=== PATIENT | male | born 1950 | race Hispanic/Latino ===

== ENCOUNTER 2017-10-16 16:37 | Inpatient (IN) | payer MEDICARE, OTHER ==
[2017-10-16 17:08] LABS: BASO # 0.1 K/uL (0.0-0.2); BASO % 0.7 % (0.0-2.0); EOS # 0.1 K/uL (0.0-0.7); EOS % 0.5 % (0.0-4.0); HEMOGLOBIN 17.6 g/dL (12.0-18.0); LYMPH # 1.2 K/uL (1.0-4.3); LYMPH % 10.9 % (20.0-40.0); MEAN CELL VOLUME 87.9 fL (80.0-94.0); MEAN CORPUSCULAR HEMOGLOBIN 29.8 pg (27.0-31.0); MEAN CORPUSCULAR HGB CONC 33.9 g/dL (33.0-37.0); MEAN PLATELET VOLUME 8.6 fL (7.2-11.7); MONO # 1.1 K/uL (0.0-0.8); MONO % 10.5 % (0.0-10.0); NEUT # 8.2 K/uL (1.8-7.0); NEUT % 77.4 % (50.0-75.0); NRBC % 0.3 % (0.0-2.0); RBC 5.9 Mil/uL (4.40-5.90); RED CELL DISTRIBUTION WIDTH 14.9 % (11.5-14.5); WHITE BLOOD COUNT 10.6 K/uL (4.8-10.8)
[2017-10-16 17:22] LABS: ALB/GLOB RATIO 1.2 (1.0-2.1); ALBUMIN 4.6 g/dL (3.5-5.0); ALT/SGPT 22 U/L (21-72); AST/SGOT 28 U/L (17-59); BLOOD UREA NITROGEN 26 mg/dL (9-20); CALCIUM 10.1 mg/dl (8.6-10.4); GFR AFRICAN-AMERICAN > 60; GFR NON-AFRICAN AMERICAN > 60
--- NOTE | 2017-10-16 17:31 | RAD ---
PROCEDURE: CHEST RADIOGRAPH, 1 VIEW HISTORY: SOB COMPARISON: Chest radiograph dated 07/05/2017. FINDINGS: LUNGS: Prominence of pulmonary vasculature may be secondary to AP technique and/or pulmonary vascular congestion. PLEURA: No pneumothorax or pleural fluid seen. CARDIOVASCULAR: Normal. OSSEOUS STRUCTURES: Unchanged. VISUALIZED UPPER ABDOMEN: Normal. OTHER FINDINGS: None. IMPRESSION: Prominence of the pulmonary vasculature may be secondary to AP technique and/or pulmonary vascular congestion. No focal consolidation or pleural effusion.
[2017-10-16 17:34] LABS: B-TYPE NATRIURETIC PEPTIDE 4500 pg/mL (0-900)
--- NOTE | 2017-10-16 17:36 | C.PDOC ---
History Of Present Illness 67 year old male with PMHx of AFib is brought to the ED by EMS for evaluation of SOB and palpitations. Patient is currently taking xeralto but has been off cardizen due to poor toleration. Patient was given lasix, cardizem 30 mg IV and BIPAP en route to the ED by EMS. Patient denies headache, CP, weakness, numbness. Time Seen by Provider: 10/16/17 16:46 Chief Complaint (Nursing): Respiratory Distress History Per: Patient, EMS History/Exam Limitations: no limitations Onset/Duration Of Symptoms: Hrs Current Symptoms Are (Timing): Still Present Exacerbating Factor(s): Exertion Current Respiratory Medications: See Home Med List Recent travel outside of the [place]: No Additional History Per: Patient Past Medical History Reviewed: Historical Data, Nursing Documentation, Vital Signs Vital Signs: Last Vital Signs Temp 99.1 F 10/16/17 18:28 Pulse 109 H 10/16/17 18:28 Resp 20 10/16/17 18:28 BP 153/90 H 10/16/17 18:46 Pulse Ox 96 10/16/17 18:28 - Medical History PMH: Cardia Arrhythmia (ATRIAL FIBRILLATION), COPD, HTN, Hypercholesterolemia, Sleep Apnea (CPAP EVERY NIGHT) Denies: Chronic Kidney Disease Surgical History: No Surg Hx Family History: States: Unknown Family Hx - Social History Hx Alcohol Use: No Hx Substance Use: No - Immunization History Hx Tetanus Toxoid Vaccination: Yes Hx Influenza Vaccination: Yes Hx Pneumococcal Vaccination: Yes Review Of Systems Constitutional: Negative for: Fever, Chills Cardiovascular: Positive for: Palpitations. Negative for: Chest Pain Respiratory: Positive for: Shortness of Breath Gastrointestinal: Negative for: Nausea, Vomiting, Abdominal Pain Skin: Negative for: Rash Neurological: Negative for: Weakness, Numbness, Headache Physical Exam - Physical Exam Appears: Non-toxic, In Acute Distress Skin: Normal Color, Warm, Dry Head: Atraumatic, Normacephalic Eye(s): bilateral: Normal Inspection Nose: No Discharge Oral Mucosa: Moist Neck: Normal ROM, Supple Chest: Symmetrical Cardiovascular: Rhythm Regular, No Murmur Respiratory: Rales (B/L), No Rhonchi, No Wheezing, Other (Respiratory distress ) Gastrointestinal/Abdominal: Soft, No Tenderness, No Guarding, No Rebound Extremity: Normal ROM, Pedal Edema (B/L 4+), Capillary Refill (<2 seconds), No Swelling Pulses: Left Dorsalis Pedis: Normal, Right Dorsalis Pedis: Normal Neurological/Psych: Oriented x3, Normal Speech Gait: Unable To Assess ED Course And Treatment - Laboratory Results Result Diagrams: 10/16/17 17:03 10/16/17 17:03 Lab Interpretation: Abnormal (bNP 4500, trop neg.) ECG: Interpreted By Vt ECG Rhythm: Atrial Fibrillation ECG Interpretation: Abnormal Rate From EC (BPM) O2 Sat by Pulse Oximetry: 97 (ON RA) Pulse Ox Interpretation: Normal - Radiology CXR: Interpreted by Me CXR Interpretation: Yes: Other (+CHF) Progress Note: cardizem PO, lasix IV, BiPap Reevaluation Time: 17:34 Reassessment Condition: Improved - Physician Consult Information Outcome Of Conversation: 1730: d/w Dr. Manuel- pt's Cardio- ok to Consult. 1730: d/w Dr. Jacek Ruiz- pt's PMD- ok to admit. Medical Decision Making Medical Decision Making: Plan: * EKG * LAbs * CXR * Cardizem 60 mg PO * Lasix 40 mg IVP rapid AF/CHF off Cardizem PO due to ? intolerance but tolerated well in ED- avoiding BB's in CHF exacerbation Already on Xaralto- no further anticoagulation required at this time. Disposition Doctor Will See Patient In The: Hospital Counseled Patient/Family Regarding: Studies Performed, Diagnosis - Disposition Disposition: HOSPITALIZED Disposition Time: 17:37 Condition: GOOD - Clinical Impression Clinical Impression: Congestive heart failure, Rapid atrial fibrillation - Scribe Statement The provider has reviewed the documentation as recorded by the Scribweston Cruz All medical record entries made by the Scribe were at my direction and personally dictated by me. I have reviewed the chart and agree that the record accurately reflects my personal performance of the history, physical exam, medical decision making, and the department course for this patient. I have also personally directed, reviewed, and agree with the discharge instructions and disposition.
[2017-10-16 17:43] LABS: BARBITURATES, UR NEGATIVE (NEGATIVE); BENZODIAZEPINES, UR NEGATIVE (NEGATIVE); OPIATES, UR NEGATIVE (NEGATIVE); PHENCYCLIDINE, UR NEGATIVE (NEGATIVE)
[2017-10-16 18:21] VITALS: BMI 39.4
--- NOTE | 2017-10-16 18:57 | CP.PCM.CON ---
History of Present Illness - History of Present Illness History of Present Illness: I was asked to see patient by Dr Ruiz. Patient is a 67 year old male with a history of HTN, hypercholesterolemia, atrial fibrillation who presents with dyspnea. Patient has chronic atrial fibrillation, and was previously offered atrial fibrillation ablation. He declined stating that he was asymptomatic. He was noted to developed dyspnea with palpitations. symptoms were progressive, and the patient presented to ER. He was found to be in CHF, with pulmonary vascular congestion and rapid atrial fibrillation. The patinet is currently in the ER on BiPAP. Review of Systems - Constitutional Constitutional: absent: As Per HPI, Anorexia, Chills, Daytime Sleepiness, Excessive Sweating, Fatigue, Fever, Frequent Falls, Headache, Increased Appetite , Lethargy, Malaise, Night Sweats, Snoring, Sleep Apnea, Weight Gain, Weight Loss, Weakness, Other - EENT Eyes: absent: As Per HPI, Blind Spots, Blurred Vision, Change in Vision, Decreased Night Vision, Diplopia, Discharge, Dry Eye, Exophthalmos, Floaters, Irritation, Itchy Eyes, Loss of Peripheral Vision, Pain, Photophobia, Requires Corrective Lenses, Sees Flashes, Spots in Vision, Tunnel Vision, Other Visual Disturbances, Loss of Vision, Other Ears: absent: As Per HPI, Decreased Hearing, Ear Discharge, Ear Pain, Tinnitus, Abnormal Hearing, Disequilibrium, Dizziness, Other Nose/Mouth/Throat: absent: As Per HPI, Epistaxis, Nasal Congestion, Nasal Discharge, Nasal Obstruction, Nasal Trauma, Nose Pain, Post Nasal Drip, Sinus Pain, Sinus Pressure, Bleeding Gums, Change in Voice, Dental Pain, Dry Mouth, Dysphagia, Halitosis, Hoarsness, Lip Swelling, Mouth Lesions, Mouth Pain, Odynophagia, Sore Throat, Throat Swelling, Tongue Swelling, Facial Pain, Neck Pain, Neck Mass, Other - Cardiovascular Cardiovascular: Dyspnea, Palpitations - Respiratory Respiratory: Dyspnea - Gastrointestinal Gastrointestinal: absent: As Per HPI, Abdominal Pain, Belching, Bloating, Change in Bowel Habits, Change in Stool Character, Coffee Ground Emesis, Constipation, Cramping, Diarrhea, Dyspepsia, Dysphagia, Early Satiety, Excessive Flatus, Fecal Incontinence, Heartburn, Hematemesis, Hematochezia, Loose Stools, Melena, Nausea, Odynophagia, Temesmus, Vomiting, Other - Genitourinary Genitourinary: absent: As Per HPI, Change in Urinary Stream, Difficulty Urinating, Dysuria, Flank Pain, Hematuria, Pyuria, Nocturia, Urinary Incontinence, Urinary Frequency, Urinary Hesitance, Urinary Urgency, Voiding Freq/Small Amts, Freq UTI, Hx Renal/Bladder Calculi, Hx /Renal Surgery, Bladder Distension, Other - Musculoskeletal Musculoskeletal: absent: As Per HPI, Abnormal Gait, Arthralgias, Atrophy, Back Pain, Deformity, Joint Swelling, Limited Range of Motion, Loss of Height, Muscle Cramps, Muscle Weakness, Myalgias, Neck Pain, Numbness, Radiating Pain into Limb, Stiffness, Tingling, Other - Integumentary Integumentary: absent: As Per HPI, Acne, Alopecia, Bleeding Lesions, Change in Hair, Change in Nails, Change in Pigmentation, Changing Lesions, Dry Skin, Erythema, Furuncle, Hirsutism, Lesions, New Lesions, Non-Healing Lesions, Photosensitivity, Pruritus, Rash, Skin Pain, Skin Ulcer, Sores, Striae, Swelling , Unusual Bruising, Wounds, Jaundice, Other - Neurological Neurological: absent: As Per HPI, Abnormal Gait, Abnormal Hearing, Abnormal Movements, Abnormal Speech, Behavioral Changes, Burning Sensations, Confusion, Convulsions, Disequilibrium, Dizziness, Numbness, Focal Weakness, Frequent Falls , Headaches, Lack of Coordination, Loss of Vision, Memory Loss, Paresthesias, Radicular Pain, Restless Legs, Sensory Deficit, Syncope, Tingling, Tremor, Vertigo, Weakness, Other Visual Disturbances, Other - Psychiatric Psychiatric: absent: As Per HPI, Abnormal Sleep Pattern, Anhedonia, Anxiety, Auditory Hallucinations, Behavioral Changes, Change in Appetite, Change in Libido, Confusion, Depression, Difficulty Concentrating, Hallucinations, Homicidal Ideation, Hopelessness, Irritability, Memory Loss, Mood Swings, Panic Attacks, Paranoia, Suicidal Ideation, Visual Hallucinations, Tactile Hallucinations, Other - Endocrine Endocrine: absent: As Per HPI, Change in Body Appearance, Change in Libido, Cold Intolorance, Deepening of Voice, Excessive Sweating, Fatigue, Flushing, Heat Intolorance, Increase in Ring/Shoe/Hat Size, Palpitations, Polydipsia, Polyphagia, Polyuria, Other - Hematologic/Lymphatic Hematologic: absent: As Per HPI, Easy Bleeding, Easy Bruising, Lymphadenopathy, Other Past Patient History - Past Social History Smoking Status: Never Smoked - CARDIAC Hx Cardia Arrhythmia: Yes (ATRIAL FIBRILLATION) Hx Hypercholesterolemia: Yes Hx Hypertension: Yes - PULMONARY Hx Chronic Obstructive Pulmonary Disease (COPD): Yes Hx Sleep Apnea: Yes (CPAP EVERY NIGHT) - NEUROLOGICAL Hx Neurological Disorder: No - HEENT Hx HEENT Problems: No - RENAL Hx Chronic Kidney Disease: No - ENDOCRINE/METABOLIC Hx Endocrine Disorders: Yes Hx Diabetes Mellitus Type 2: Yes (PRE DIABETIC) - HEMATOLOGICAL/ONCOLOGICAL Hx Blood Disorders: No - INTEGUMENTARY Hx Dermatological Problems: No - MUSCULOSKELETAL/RHEUMATOLOGICAL Hx Musculoskeletal Disorders: Yes Hx Osteoarthritis: Yes - GASTROINTESTINAL Hx Gastrointestinal Disorders: No Other/Comment: DENIES POLYPS IN PAST , STATES FAMILY HISTORY POSITIVE - GENITOURINARY/GYNECOLOGICAL Hx Genitourinary Disorders: Yes Other/Comment: LEFT URETER BLOCKAGE YEARS AGO. PSA IS NEGATIVE BUT PHYSICAL EXAM SHOWS ENLARGEMENT - PSYCHIATRIC Hx Substance Use: No - SURGICAL HISTORY Hx Surgeries: Yes Other/Comment: REMOVAL OF BLOCKED LEFT URETER SITE - ANESTHESIA Hx Anesthesia: Yes Hx Anesthesia Reactions: No Hx Malignant Hyperthermia: No Meds Allergies/Adverse Reactions: Allergies Allergy/AdvReac Type Severity Reaction Status Date / Time No Known Allergies Allergy Verified 10/16/17 16:53 Physical Exam - Constitutional Appears: Non-toxic - Head Exam Head Exam: NORMAL INSPECTION - Eye Exam Eye Exam: Normal appearance - ENT Exam ENT Exam: Mucous Membranes Moist - Neck Exam Neck exam: Positive for: Full Rom - Respiratory Exam Respiratory Exam: Decreased Breath Sounds - Cardiovascular Exam Cardiovascular Exam: Tachycardia, Irregular Rhythm - GI/Abdominal Exam GI & Abdominal Exam: Normal Bowel Sounds - Rectal Exam Rectal Exam: Deferred - Extremities Exam Extremities exam: Negative for: pedal edema - Back Exam Back exam: NORMAL INSPECTION - Neurological Exam Neurological exam: Alert, Oriented x3 - Psychiatric Exam Psychiatric exam: Normal Affect - Skin Skin Exam: Normal Color Results - Vital Signs Recent Vital Signs: Last Vital Signs Temp 99.1 F 10/16/17 18:28 Pulse 109 H 10/16/17 18:28 Resp 20 10/16/17 18:28 BP 153/90 H 10/16/17 18:46 Pulse Ox 96 10/16/17 18:28 - Labs Result Diagrams: 10/16/17 17:03 10/16/17 17:03 Labs: Laboratory Results - last 24 hr 10/16/17 10/16/1718 17:03 17:03 17:19 WBC 10.6 RBC 5.90 Hgb 17.6 Hct 51.8 H MCV 87.9 MCH 29.8 MCHC 33.9 RDW 14.9 H Plt Count 209 MPV 8.6 Neut % (Auto) 77.4 H Lymph % (Auto) 10.9 L [place] % (Auto) 10.5 H Eos % (Auto) 0.5 Baso % (Auto) 0.7 Neut # (Auto) 8.2 H Lymph # (Auto) 1.2 [place] # (Auto) 1.1 H Eos # (Auto) 0.1 Baso # (Auto) 0.1 Sodium 143 Potassium 3.6 Chloride 97 L Carbon Dioxide 28 Anion Gap 22 H BUN 26 H Creatinine 1.2 Est GFR ( Amer) > 60 Est GFR (Non-Af Amer) > 60 Random Glucose 154 H Calcium 10.1 Total Bilirubin 1.6 H AST 28 ALT 22 Alkaline Phosphatase 65 Troponin I 0.0570 NT-Pro-B Natriuret Pep 4500 H Total Protein 8.5 H Albumin 4.6 Globulin 3.9 Albumin/Globulin Ratio 1.2 Urine Opiates Screen Negative Urine Methadone Screen Negative Ur Barbiturates Screen Negative Ur Phencyclidine Scrn Negative Ur Amphetamines Screen Negative U Benzodiazepines Scrn Negative U Oth Cocaine Metabols Negative U Cannabinoids Screen Negative - EKG Data EKG Interpreted by: Myself Assessment & Plan (1) Rapid atrial fibrillation Assessment and Plan: patient has current rapid atrial fibrillation. The patient will require rate control and improvement in volume status. I discussed management with the patient at length. He will benefit from CICI possible cardioversion. I will continue Xarelto. Check echocardiogram (2D). with improvement in respiratory status, will schedule for CICI. Status: Acute
[2017-10-16] MEDS ORDERED: Digoxin 500 mcg/2ml (0.5 mg/2ml) Inj IVP ONE (20:04)
[2017-10-16 20:17] VITALS: PULSE 145
[2017-10-16] MEDS ORDERED: Potassium Chloride 20 mEq ER Tab PO STA (22:27)
[2017-10-17 07:45] LABS: BLOOD UREA NITROGEN 34 mg/dL (9-20); CALCIUM 9.1 mg/dl (8.6-10.4); GFR AFRICAN-AMERICAN > 60; GFR NON-AFRICAN AMERICAN 55
[2017-10-17] MEDS: (Novolog) Insulin Aspart, Recombinant 100 u/ml 10 ml vial SC SCH ×4 (08:05→22:45)
[2017-10-17] MEDS: Albuterol-Ipratrop 3 mg / 0.5 (3 ml) UD INH SCH ×4 (08:22→19:33)
--- NOTE | 2017-10-17 08:35 | CP.PCM.HP ---
History of Present Illness - History of Present Illness History of Present Illness: CC: Cough Patient 67 y/o with NIDDM, At ib, Sleep Apnea and At fib. Patient seen last weak c/o edema and Bradycardia. Coreg was decrease to q daily & place on Lasix. Pro BNP is 300+. Pt 2 days ago had increasing cough, mucus is stuck on his chest and yellowish if he is able to put it out. Pt felt worse and went to ER Present on Admission - Present on Admission Any Indicators Present on Admission: Yes History of DVT/PE: No History of Uncontrolled Diabetes: No Urinary Catheter: No Decubitus Ulcer Present: No Review of Systems - Review of Systems Systems not reviewed;Unavailable: Acuity of Condition - Constitutional Constitutional: Anorexia, Lethargy, Malaise, Snoring, Weight Gain. absent: Excessive Sweating, Night Sweats - EENT Eyes: absent: Floaters, Irritation, Itchy Eyes, Loss of Peripheral Vision, Sees Flashes Ears: absent: Decreased Hearing, Ear Pain, Tinnitus Nose/Mouth/Throat: Nasal Congestion. absent: Epistaxis, Nasal Trauma, Nose Pain , Change in Voice, Hoarsness - Cardiovascular Cardiovascular: Dyspnea, Edema, Leg Edema, Orthopnea, Palpitations, Paroxysmal Nocturnal Dyspnea. absent: Chest Pain, Diaphoresis, Dyspnea on Exertion, Leg Ulcers - Respiratory Respiratory: Dyspnea, Dyspnea on Exertion, Chest Congestion, Excessive Mucous Production, Change in Mucous Color - Gastrointestinal Gastrointestinal: absent: Constipation, Cramping, Diarrhea, Dyspepsia, Dysphagia , Fecal Incontinence, Hematochezia, Loose Stools - Genitourinary Genitourinary: absent: Difficulty Urinating, Urinary Incontinence, Urinary Urgency, Hx Renal/Bladder Calculi - Integumentary Integumentary: absent: Alopecia, Lesions, Rash, Skin Pain, Swelling Past Patient History - Past Social History Smoking Status: Never Smoked - CARDIAC Hx Cardia Arrhythmia: Yes (ATRIAL FIBRILLATION) Hx Hypercholesterolemia: Yes Hx Hypertension: Yes - PULMONARY Hx Chronic Obstructive Pulmonary Disease (COPD): Yes Hx Sleep Apnea: Yes (CPAP EVERY NIGHT) - NEUROLOGICAL Hx Neurological Disorder: No - HEENT Hx HEENT Problems: No - RENAL Hx Chronic Kidney Disease: No - ENDOCRINE/METABOLIC Hx Endocrine Disorders: Yes Hx Diabetes Mellitus Type 2: Yes (PRE DIABETIC) - HEMATOLOGICAL/ONCOLOGICAL Hx Blood Disorders: No - INTEGUMENTARY Hx Dermatological Problems: No - MUSCULOSKELETAL/RHEUMATOLOGICAL Hx Musculoskeletal Disorders: Yes Hx Osteoarthritis: Yes - GASTROINTESTINAL Hx Gastrointestinal Disorders: No Other/Comment: DENIES POLYPS IN PAST , STATES FAMILY HISTORY POSITIVE - GENITOURINARY/GYNECOLOGICAL Hx Genitourinary Disorders: Yes Other/Comment: LEFT URETER BLOCKAGE YEARS AGO. PSA IS NEGATIVE BUT PHYSICAL EXAM SHOWS ENLARGEMENT - PSYCHIATRIC Hx Substance Use: No - SURGICAL HISTORY Hx Surgeries: Yes Other/Comment: REMOVAL OF BLOCKED LEFT URETER SITE - ANESTHESIA Hx Anesthesia: Yes Hx Anesthesia Reactions: No Hx Malignant Hyperthermia: No Meds Allergies/Adverse Reactions: Allergies Allergy/AdvReac Type Severity Reaction Status Date / Time No Known Allergies Allergy Verified 10/16/17 16:53 Physical Exam - Constitutional Appears: Well - Eye Exam Eye Exam: Normal appearance - ENT Exam ENT Exam: Mucous Membranes Moist - Neck Exam Neck exam: Positive for: Full Rom. Negative for: Lymphadenopathy, Meningismus, Thyromegaly - Respiratory Exam Respiratory Exam: Decreased Breath Sounds, Rhonchi, Wheezes. absent: Rales - Cardiovascular Exam Cardiovascular Exam: Gallop, Irregular Rhythm, +S1, +S2. absent: JVD - GI/Abdominal Exam GI & Abdominal Exam: Soft. absent: Guarding, Mass, Tenderness - Extremities Exam Extremities exam: Positive for: calf tenderness, normal capillary refill. Negative for: full ROM, joint swelling, pedal edema Results - Vital Signs Recent Vital Signs: Last Vital Signs Temp 98.4 F 10/17/17 08:25 Pulse 90 10/17/17 08:25 Resp 20 10/17/17 08:25 BP 116/77 10/17/17 08:25 Pulse Ox 95 10/17/17 08:25 - Labs Result Diagrams: 10/16/17 17:03 10/17/17 07:10 Labs: Laboratory Results - last 24 hr 10/16/17 10/16/17 10/16/17 17:03 17:03 17:19 WBC 10.6 RBC 5.90 Hgb 17.6 Hct 51.8 H MCV 87.9 MCH 29.8 MCHC 33.9 RDW 14.9 H Plt Count 209 MPV 8.6 Neut % (Auto) 77.4 H Lymph % (Auto) 10.9 L [place] % (Auto) 10.5 H Eos % (Auto) 0.5 Baso % (Auto) 0.7 Neut # (Auto) 8.2 H Lymph # (Auto) 1.2 [place] # (Auto) 1.1 H Eos # (Auto) 0.1 Baso # (Auto) 0.1 Sodium 143 Potassium 3.6 Chloride 97 L Carbon Dioxide 28 Anion Gap 22 H BUN 26 H Creatinine 1.2 Est GFR ( Amer) > 60 Est GFR (Non-Af Amer) > 60 POC Glucose (mg/dL) Random Glucose 154 H Calcium 10.1 Total Bilirubin 1.6 H AST 28 ALT 22 Alkaline Phosphatase 65 Troponin I 0.0570 NT-Pro-B Natriuret Pep 4500 H Total Protein 8.5 H Albumin 4.6 Globulin 3.9 Albumin/Globulin Ratio 1.2 Urine Opiates Screen Negative Urine Methadone Screen Negative Ur Barbiturates Screen Negative Ur Phencyclidine Scrn Negative Ur Amphetamines Screen Negative U Benzodiazepines Scrn Negative U Oth Cocaine Metabols Negative U Cannabinoids Screen Negative 10/16/17 10/17/17 10/17/17 21:32 06:51 07:10 WBC RBC Hgb Hct MCV MCH MCHC RDW Plt Count MPV Neut % (Auto) Lymph % (Auto) [place] % (Auto) Eos % (Auto) Baso % (Auto) Neut # (Auto) Lymph # (Auto) [place] # (Auto) Eos # (Auto) Baso # (Auto) Sodium 142 Potassium 4.3 Chloride 94 L Carbon Dioxide 33 H Anion Gap 19 BUN 34 H Creatinine 1.3 Est GFR ( Amer) > 60 Est GFR (Non-Af Amer) 55 POC Glucose (mg/dL) 149 H 138 H Random Glucose 135 H Calcium 9.1 Total Bilirubin AST ALT Alkaline Phosphatase Troponin I NT-Pro-B Natriuret Pep Total Protein Albumin Globulin Albumin/Globulin Ratio Urine Opiates Screen Urine Methadone Screen Ur Barbiturates Screen Ur Phencyclidine Scrn Ur Amphetamines Screen U Benzodiazepines Scrn U Oth Cocaine Metabols U Cannabinoids Screen - EKG Data EKG Interpreted by: Myself Rate: Tachycardia - EKG Data When Compared to Previous EKG: No Significant Change (Non sp TW changes on lat leads) Assessment & Plan - Assessment and Plan (Free Text) Assessment: Acute Bronchitis/ CHF AF w/ rapid VR; NIDDM, Sleep apnea Doxy/ DuoNeb On cardizem / Cardio note reviewed and appreciated Pulm consult Cont meds/ Xareldo Hold metformin - FS w/ coverage
[2017-10-17] MEDS: Pantoprazole 40 mg EC Tab PO SCH (09:35)
[2017-10-17] MEDS ORDERED: Albuterol-Ipratrop 3 mg / 0.5 (3 ml) UD INH SCH (10:00)
--- NOTE | 2017-10-17 10:29 | CP.PCM.CON ---
History of Present Illness - History of Present Illness History of Present Illness: CHART REVIEWED. PT SEEN AND EXAMINED. 67 YO W MALE WITH A HX OBESITY, CATA, HTN, HYPERLIPIDEMIA, NIDDM, AFIB ON XARELTO X YRS, ADM 10/16/17 WITH INCREASED MOD SOB WITH MIN EXERTION X 2 DAYS., + PALPITATIONS., +COUGH +THICK YELLOW SPUTUM.. NO HX ASTHMA., ON CPAP QHS, COMPLIANT. Review of Systems - Review of Systems All systems: reviewed and no additional remarkable complaints except - Constitutional Constitutional: absent: Fever, Weight Gain - EENT Eyes: absent: Change in Vision Ears: absent: Decreased Hearing Nose/Mouth/Throat: absent: Nasal Congestion - Cardiovascular Cardiovascular: Pedal Edema, Rapid Heart Rate. absent: Syncope - Respiratory Respiratory: Cough, Dyspnea, Dyspnea on Exertion, Change in Mucous Color - Gastrointestinal Gastrointestinal: absent: Nausea, Vomiting - Genitourinary Genitourinary: absent: Dysuria - Musculoskeletal Musculoskeletal: absent: Limited Range of Motion, Myalgias - Integumentary Integumentary: absent: Rash - Neurological Neurological: absent: Confusion, Focal Weakness, Syncope, Tremor, Weakness - Psychiatric Psychiatric: absent: Anxiety, Confusion - Endocrine Endocrine: absent: Change in Body Appearance - Hematologic/Lymphatic Hematologic: absent: Easy Bruising Past Patient History - Infectious Disease Hx of Infectious Diseases: None - Past Medical History & Family History Past Medical History?: Yes Pertinent Family History: +COPD - Past Social History Smoking Status: Never Smoked Chewing Tobacco Use: No Cigar Use: No Alcohol: None Drugs: Denies Home Situation {Lives}: Alone - CARDIAC Hx Cardia Arrhythmia: Yes (ATRIAL FIBRILLATION) Hx Hypercholesterolemia: Yes Hx Hypertension: Yes - PULMONARY Hx Asthma: No Hx Bronchitis: Yes Hx Chronic Obstructive Pulmonary Disease (COPD): No Hx Sleep Apnea: Yes (CPAP EVERY NIGHT) - NEUROLOGICAL Hx Neurological Disorder: No - HEENT Hx HEENT Problems: No - RENAL Hx Chronic Kidney Disease: No - ENDOCRINE/METABOLIC Hx Endocrine Disorders: Yes Hx Diabetes Mellitus Type 2: Yes (PRE DIABETIC) - HEMATOLOGICAL/ONCOLOGICAL Hx Blood Disorders: No - INTEGUMENTARY Hx Dermatological Problems: No - MUSCULOSKELETAL/RHEUMATOLOGICAL Hx Musculoskeletal Disorders: Yes Hx Osteoarthritis: Yes - GASTROINTESTINAL Hx Gastrointestinal Disorders: No Other/Comment: DENIES POLYPS IN PAST , STATES FAMILY HISTORY POSITIVE - GENITOURINARY/GYNECOLOGICAL Hx Genitourinary Disorders: Yes Other/Comment: LEFT URETER BLOCKAGE YEARS AGO. PSA IS NEGATIVE BUT PHYSICAL EXAM SHOWS ENLARGEMENT - PSYCHIATRIC Hx Substance Use: No - SURGICAL HISTORY Hx Surgeries: Yes Other/Comment: REMOVAL OF BLOCKED LEFT URETER SITE - ANESTHESIA Hx Anesthesia: Yes Hx Anesthesia Reactions: No Hx Malignant Hyperthermia: No Meds Allergies/Adverse Reactions: Allergies Allergy/AdvReac Type Severity Reaction Status Date / Time No Known Allergies Allergy Verified 10/16/17 16:53 - Medications Medications: Current Medications Albuterol/Ipratropium (Duoneb 3 Mg/0.5 Mg (3 Ml) Ud) 3 ml INH RQID [facility] Last Admin: 10/17/17 08:22 Dose: 3 ml Diltiazem HCl (Cardizem) 180 mg PO BID [facility] Last Admin: 10/17/17 09:35 Dose: 180 mg Doxycycline Hyclate (Doryx) 100 mg PO Q12H [facility] PRN Reason: Protocol Last Admin: 10/17/17 09:33 Dose: 100 mg Hydrochlorothiazide (Microzide) 12.5 mg PO DAILY [facility] Last Admin: 10/17/17 09:35 Dose: 12.5 mg Insulin Aspart (Novolog) 0 unit SC ACHS [facility] PRN Reason: Protocol Last Admin: 10/17/17 08:05 Dose: Not Given Losartan Potassium (Cozaar) 100 mg PO DAILY [facility] Last Admin: 10/17/17 09:35 Dose: 100 mg Montelukast Sodium (Singulair) 10 mg PO [facility] Pantoprazole Sodium (Protonix Ec Tab) 40 mg PO DAILY [facility] Last Admin: 10/17/17 09:35 Dose: 40 mg Rivaroxaban (Xarelto) 20 mg PO DAILY [facility] Last Admin: 10/17/17 09:35 Dose: 20 mg Rosuvastatin Calcium (Crestor) 10 mg PO HS [facility] Last Admin: 10/16/17 22:40 Dose: 10 mg Physical Exam - Head Exam Head Exam: ATRAUMATIC, NORMOCEPHALIC - Eye Exam Eye Exam: Normal appearance - ENT Exam ENT Exam: Mucous Membranes Moist - Neck Exam Neck exam: Negative for: Tenderness - Respiratory Exam Respiratory Exam: absent: Chest Wall Tenderness - Cardiovascular Exam Cardiovascular Exam: Irregular Rhythm - GI/Abdominal Exam GI & Abdominal Exam: Soft. absent: Tenderness Additional comments: OBESE - Rectal Exam Rectal Exam: Deferred - Back Exam Back exam: absent: CVA tenderness (L), CVA tenderness (R) - Neurological Exam Neurological exam: Alert, CN II-XII Intact, Oriented x3 - Psychiatric Exam Psychiatric exam: Normal Mood Results - Vital Signs Recent Vital Signs: Last Vital Signs Temp 98.4 F 10/17/17 08:25 Pulse 114 H 10/17/17 08:38 Resp 20 10/17/17 08:25 BP 116/77 10/17/17 08:25 Pulse Ox 95 10/17/17 08:38 - Labs Result Diagrams: 10/16/17 17:03 10/17/17 07:10 Labs: Laboratory Results - last 24 hr 10/16/17 10/16/17 10/16/17 17:03 17:03 17:19 WBC 10.6 RBC 5.90 Hgb 17.6 Hct 51.8 H MCV 87.9 MCH 29.8 MCHC 33.9 RDW 14.9 H Plt Count 209 MPV 8.6 Neut % (Auto) 77.4 H Lymph % (Auto) 10.9 L Waldo % (Auto) 10.5 H Eos % (Auto) 0.5 Baso % (Auto) 0.7 Neut # (Auto) 8.2 H Lymph # (Auto) 1.2 Waldo # (Auto) 1.1 H Eos # (Auto) 0.1 Baso # (Auto) 0.1 Sodium 143 Potassium 3.6 Chloride 97 L Carbon Dioxide 28 Anion Gap 22 H BUN 26 H Creatinine 1.2 Est GFR ( Amer) > 60 Est GFR (Non-Af Amer) > 60 POC Glucose (mg/dL) Random Glucose 154 H Calcium 10.1 Total Bilirubin 1.6 H AST 28 ALT 22 Alkaline Phosphatase 65 Troponin I 0.0570 NT-Pro-B Natriuret Pep 4500 H Total Protein 8.5 H Albumin 4.6 Globulin 3.9 Albumin/Globulin Ratio 1.2 Urine Opiates Screen Negative Urine Methadone Screen Negative Ur Barbiturates Screen Negative Ur Phencyclidine Scrn Negative Ur Amphetamines Screen Negative U Benzodiazepines Scrn Negative U Oth Cocaine Metabols Negative U Cannabinoids Screen Negative 10/16/17 10/17/17 10/17/17 21:32 06:51 07:10 WBC RBC Hgb Hct MCV MCH MCHC RDW Plt Count MPV Neut % (Auto) Lymph % (Auto) Waldo % (Auto) Eos % (Auto) Baso % (Auto) Neut # (Auto) Lymph # (Auto) Waldo # (Auto) Eos # (Auto) Baso # (Auto) Sodium 142 Potassium 4.3 Chloride 94 L Carbon Dioxide 33 H Anion Gap 19 BUN 34 H Creatinine 1.3 Est GFR ( Amer) > 60 Est GFR (Non-Af Amer) 55 POC Glucose (mg/dL) 149 H 138 H Random Glucose 135 H Calcium 9.1 Total Bilirubin AST ALT Alkaline Phosphatase Troponin I NT-Pro-B Natriuret Pep Total Protein Albumin Globulin Albumin/Globulin Ratio Urine Opiates Screen Urine Methadone Screen Ur Barbiturates Screen Ur Phencyclidine Scrn Ur Amphetamines Screen U Benzodiazepines Scrn U Oth Cocaine Metabols U Cannabinoids Screen Assessment & Plan (1) Bronchitis Status: Acute (2) Hypertension Status: Acute (3) Obstructive sleep apnea Status: Acute (4) Diabetes Status: Acute (5) Hyperlipidemia Status: Acute (6) Respiratory failure Status: Acute - Assessment and Plan (Free Text) Assessment: 67 YO MALE WITH A HX MULT MED PROBS ADM WITH ACUTE HYPOXEMIC RESP FAILURE DUE TO RAPID AFIB WITH CHF ON CXR AND SUPERIMPOSED BRONCHITIS. HR BETTER CONTROLLED ON CARDIZEM. FOR ECHO AND POSS CICI. CONT ANTICOAG PER CARDIO. DIURESIS TOLERATED. ON 100%NRB, TAPER FIO2 TOLERATED. MONITOR O2 SAT. CONT EMPIRIC AB., CXR REVIEWED. CPAP 14 CM H2O QHS. PROG GUARDED. DISCUSSED WITH STAFF AT LENGTH.
--- NOTE | 2017-10-17 14:26 | CARD ---
APPROVED REPORT EXAM: Two-dimensional and M-mode echocardiogram with Doppler and color Doppler. Other Information Quality : GoodRhythm : INDICATION Dyspnea Atrial Fibrillation Congestive Heart Failure RISK FACTORS Hypertension Hyperlipidemia 2D DIMENSIONS IVSd1.4 (0.7-1.1cm)LVDd4.6 (3.9-5.9cm) PWd1.4 (0.7-1.1cm)LVDs3.5 (2.5-4.0cm) FS (%) 22.5 %LVEF (%)50.0 (>50%) M-Mode DIMENSIONS Left Atrium (MM)5.78 (2.5-4.0cm)Aortic Root4.47 (2.2-3.7cm) Aortic Cusp Exc.2.53 (1.5-2.0cm) Mitral Valve MV E Hzywzqbr00.9cm/sE/A ratio0.0 TDI E/Lateral E'0.0E/Medial E'0.0 Tricuspid Valve TR Peak [id number]/sTR Peak [id number] LEFT VENTRICLE The left ventricle is normal size. There is borderline concentric left ventricular hypertrophy. The left ventricular function is normal. The left ventricular ejection fraction is within the normal range. There is normal LV segmental wall motion. RIGHT VENTRICLE The right ventricle is normal size. There is normal right ventricular wall thickness. The right ventricular systolic function is normal. ATRIA The left atrium is moderately dilated. The right atrium is mildly dilated. AORTIC VALVE The aortic valve is not well visualized. There is mild aortic regurgitation. MITRAL VALVE The mitral valve is not well visualized. There is no mitral valve stenosis. There is no mitral valve regurgitation noted. TRICUSPID VALVE There is mild pulmonary hypertension. GREAT VESSELS The aortic root is normal in size. The IVC is normal in size and collapses >50% with inspiration. PERICARDIAL EFFUSION There is a trace loculated anterior pericardial effusion. <Conclusion> The left ventricle is normal size. There is borderline concentric left ventricular hypertrophy. The left ventricular function is normal. The left ventricular ejection fraction is within the normal range. There is normal LV segmental wall motion. There is mild aortic regurgitation. There is mild pulmonary hypertension.
--- NOTE | 2017-10-17 15:09 | CARD ---
APPROVED REPORT EKG Measurement Heart [id number] <Conclusion> Atrial fibrillation with rapid ventricular response Incomplete right bundle branch block Abnormal ECG
--- NOTE | 2017-10-17 20:33 | CP.PCM.PN ---
Subjective - Date & Time of Evaluation Date of Evaluation: 10/17/17 Time of Evaluation: 20:10 - Subjective Subjective: PATIENT FEELS BETTER THAN YESTEDAY. DENIES CHEST PAIN. LESS DYSPNEA. Objective - Vital Signs/Intake and Output Vital Signs (last 24 hours): Temp Pulse Resp BP Pulse Ox 98.0 F 102 H 20 109/69 95 10/17/17 15:00 10/17/17 15:00 10/17/17 15:00 10/17/17 15:00 10/17/17 15:00 - Medications Medications: Current Medications Albuterol/Ipratropium (Duoneb 3 Mg/0.5 Mg (3 Ml) Ud) 3 ml INH RQID [facility] Last Admin: 10/17/17 19:33 Dose: 3 ml Diltiazem HCl (Cardizem) 180 mg PO BID [facility] Last Admin: 10/17/17 17:30 Dose: 180 mg Doxycycline Hyclate (Doryx) 100 mg PO Q12H [facility] PRN Reason: Protocol Last Admin: 10/17/17 19:43 Dose: 100 mg Hydrochlorothiazide (Microzide) 12.5 mg PO DAILY [facility] Last Admin: 10/17/17 09:35 Dose: 12.5 mg Insulin Aspart (Novolog) 0 unit SC ACHS [facility] PRN Reason: Protocol Last Admin: 10/17/17 18:28 Dose: 1 unit Losartan Potassium (Cozaar) 100 mg PO DAILY [facility] Last Admin: 10/17/17 09:35 Dose: 100 mg Montelukast Sodium (Singulair) 10 mg PO [facility] Pantoprazole Sodium (Protonix Ec Tab) 40 mg PO DAILY [facility] Last Admin: 10/17/17 09:35 Dose: 40 mg Rivaroxaban (Xarelto) 20 mg PO DAILY [facility] Last Admin: 10/17/17 09:35 Dose: 20 mg Rosuvastatin Calcium (Crestor) 10 mg PO HS [facility] Last Admin: 10/16/17 22:40 Dose: 10 mg - Labs Labs: 10/16/17 17:03 10/17/17 07:10 - Constitutional Appears: Non-toxic - Head Exam Head Exam: NORMAL INSPECTION - Eye Exam Eye Exam: Normal appearance - ENT Exam ENT Exam: Mucous Membranes Moist - Neck Exam Neck Exam: Normal Inspection - Respiratory Exam Respiratory Exam: Decreased Breath Sounds, Wheezes - Cardiovascular Exam Cardiovascular Exam: Irregular Rhythm - GI/Abdominal Exam GI & Abdominal Exam: Normal Bowel Sounds - Rectal Exam Rectal Exam: Deferred - Extremities Exam Extremities Exam: Normal Inspection - Back Exam Back Exam: NORMAL INSPECTION - Neurological Exam Neurological Exam: Alert - Psychiatric Exam Psychiatric exam: Normal Affect - Skin Skin Exam: Normal Color Assessment and Plan (1) Rapid atrial fibrillation Assessment & Plan: RATE STILL ELEVATES AT TIMES. RECOMMEND CICI/POSSIBLE CARDIOVERSION. NPO AFTER MIDNIGHT. Status: Acute
[2017-10-18] MEDS: Albuterol-Ipratrop 3 mg / 0.5 (3 ml) UD INH SCH ×4 (07:17→21:28)
[2017-10-18 07:54] LABS: ALB/GLOB RATIO 1.1 (1.0-2.1); ALBUMIN 3.8 g/dL (3.5-5.0); ALT/SGPT 27 U/L (21-72); AST/SGOT 33 U/L (17-59); BLOOD UREA NITROGEN 42 mg/dL (9-20); CALCIUM 9.8 mg/dl (8.6-10.4); GFR AFRICAN-AMERICAN > 60; GFR NON-AFRICAN AMERICAN > 60
--- NOTE | 2017-10-18 08:03 | CP.PCM.PN ---
Subjective - Date & Time of Evaluation Date of Evaluation: 10/18/17 Time of Evaluation: 07:45 - Subjective Subjective: Pt breathing much better but unable to sleep well. No CP, no more mucus, no SOB, no edema, no n/n, no diarrhea Objective - Vital Signs/Intake and Output Vital Signs (last 24 hours): Temp Pulse Resp BP Pulse Ox 98 F 99 H 20 117/76 93 L 10/17/17 23:45 10/17/17 23:45 10/17/17 23:45 10/17/17 23:45 10/17/17 23:45 Intake and Output: 10/18/17 10/18/17 06:59 18:59 Intake Total 240 Balance 240 - Medications Medications: Current Medications Albuterol/Ipratropium (Duoneb 3 Mg/0.5 Mg (3 Ml) Ud) 3 ml INH RQID [facility] Last Admin: 10/18/17 07:17 Dose: 3 ml Diltiazem HCl (Cardizem) 180 mg PO BID [facility] Last Admin: 10/17/17 17:30 Dose: 180 mg Doxycycline Hyclate (Doryx) 100 mg PO Q12H [facility] PRN Reason: Protocol Last Admin: 10/17/17 19:43 Dose: 100 mg Hydrochlorothiazide (Microzide) 12.5 mg PO DAILY [facility] Last Admin: 10/17/17 09:35 Dose: 12.5 mg Insulin Aspart (Novolog) 0 unit SC ACHS [facility] PRN Reason: Protocol Last Admin: 10/17/17 22:45 Dose: Not Given Losartan Potassium (Cozaar) 100 mg PO DAILY [facility] Last Admin: 10/17/17 09:35 Dose: 100 mg Montelukast Sodium (Singulair) 10 mg PO HS [facility] Last Admin: 10/17/17 21:27 Dose: 10 mg Pantoprazole Sodium (Protonix Ec Tab) 40 mg PO DAILY [facility] Last Admin: 10/17/17 09:35 Dose: 40 mg Rivaroxaban (Xarelto) 20 mg PO DAILY [facility] Last Admin: 10/17/17 09:35 Dose: 20 mg Rosuvastatin Calcium (Crestor) 10 mg PO HS [facility] Last Admin: 10/17/17 21:27 Dose: 10 mg - Labs Labs: 10/16/17 17:03 10/18/17 07:26 - Constitutional Appears: No Acute Distress - Eye Exam Eye Exam: Normal appearance - ENT Exam ENT Exam: Mucous Membranes Moist - Neck Exam Neck Exam: Full ROM. absent: Lymphadenopathy, Thyromegaly - Respiratory Exam Respiratory Exam: Clear to Ausculation Bilateral, Rhonchi, Wheezes. absent: Rales - Cardiovascular Exam Cardiovascular Exam: REGULAR RHYTHM, +S1, +S2, Murmur. absent: Gallop, JVD - GI/Abdominal Exam GI & Abdominal Exam: Soft. absent: Tenderness, Mass - Extremities Exam Extremities Exam: Normal Capillary Refill. absent: Calf Tenderness, Full ROM, Joint Swelling, Pedal Edema Assessment and Plan - Assessment and Plan (Free Text) Assessment: Ac Bronchitis, CHF w/ Diastolic dysfunction Sleep apnea; NIDDM, AF w/ RVR, HTN Echo no thrombus Plan for Cardioversion Cont meds
[2017-10-18] MEDS: (Novolog) Insulin Aspart, Recombinant 100 u/ml 10 ml vial SC SCH ×4 (08:17→21:24)
[2017-10-18] MEDS: Pantoprazole 40 mg EC Tab PO SCH (10:32)
[2017-10-18] MEDS ORDERED: Lidocaine 4% (Laryng-O-Jet) Kit MM ONE ×2 (10:41→12:58)
[2017-10-18] MEDS ORDERED: Propofol 10 mg/ml Inj (20 ML) ONE ×2 (12:58)
[2017-10-18] MEDS ORDERED: Midazolam 2 MG/2 ML VIAL ONE (13:06)
[2017-10-18] MEDS ORDERED: ePHEDrine 50 mg/ml Inj ONE (13:44)
[2017-10-18] MEDS ORDERED: Amiodarone 150mg/3 ml vial ONE ×2 (13:51)
--- NOTE | 2017-10-18 14:15 | CP.PCM.PN ---
Subjective - Date & Time of Evaluation Date of Evaluation: 10/18/17 Time of Evaluation: 14:12 - Subjective Subjective: CICI AND CV Objective - Vital Signs/Intake and Output Vital Signs (last 24 hours): Temp Pulse Resp BP Pulse Ox 97.9 F 119 H 20 124/75 95 10/18/17 08:26 10/18/17 08:26 10/18/17 08:26 10/18/17 08:26 10/18/17 08:26 Intake and Output: 10/18/17 10/18/17 06:59 18:59 Intake Total 240 Balance 240 - Medications Medications: Current Medications Albuterol/Ipratropium (Duoneb 3 Mg/0.5 Mg (3 Ml) Ud) 3 ml INH RQID [facility] Last Admin: 10/18/17 11:07 Dose: 3 ml Diltiazem HCl (Cardizem) 180 mg PO BID [facility] Last Admin: 10/18/17 10:32 Dose: 180 mg Doxycycline Hyclate (Doryx) 100 mg PO Q12H [facility] PRN Reason: Protocol Last Admin: 10/18/17 08:31 Dose: 100 mg Hydrochlorothiazide (Microzide) 12.5 mg PO DAILY [facility] Last Admin: 10/18/17 10:32 Dose: 12.5 mg Amiodarone HCl 900 mg/ (Dextrose) 500 mls @ 33.33 mls/hr IV .Q15H1M ONE; 1 MG/ MIN PRN Reason: Protocol Stop: 10/19/17 04:55 Amiodarone HCl 900 mg/ (Dextrose) 500 mls @ 33.33 mls/hr IV .Q15H1M ONE; 1 MG/ MIN PRN Reason: Protocol Stop: 10/19/17 05:10 Insulin Aspart (Novolog) 0 unit SC ACHS [facility] PRN Reason: Protocol Last Admin: 10/18/17 08:17 Dose: Not Given Losartan Potassium (Cozaar) 100 mg PO DAILY [facility] Last Admin: 10/18/17 10:31 Dose: 100 mg Montelukast Sodium (Singulair) 10 mg PO HS [facility] Last Admin: 10/17/17 21:27 Dose: 10 mg Pantoprazole Sodium (Protonix Ec Tab) 40 mg PO DAILY [facility] Last Admin: 10/18/17 10:32 Dose: 40 mg Potassium Chloride (K-Dur 20 Meq Er Tab) 40 meq PO BRK ONE Stop: 10/19/17 08:05 Rivaroxaban (Xarelto) 20 mg PO DAILY [facility] Last Admin: 10/18/17 10:38 Dose: 20 mg Rosuvastatin Calcium (Crestor) 10 mg PO HS [facility] Last Admin: 10/17/17 21:27 Dose: 10 mg - Labs Labs: 10/16/17 17:03 10/18/17 07:26 Assessment and Plan (1) Encounter for cardioversion procedure Status: Acute (2) Atrial fibrillation status post cardioversion Status: Acute (3) Rapid atrial fibrillation Status: Acute (4) Postprocedural hypotension Status: Acute - Assessment and Plan (Free Text) Plan: INFORMED WRITTEN CONSENT OBTAINED. CICI LIMITED FOR NICOLÁS THROMBUS. CV SYNCH X 1 AT 200J. NOW SR. AMIO 150MG IVP GIVEN AMIODARONE IV LOAD STARTED. TRANSFER TO ICU FOR AMIO MILD SYSTOLIC HYPOTENSION DUE TO SEDATION, NORMAL MAP AT 75 D/W ICU PHYSICIAN AND [employer]IMARY [employer] / CEO.
--- NOTE | 2017-10-18 16:52 | CP.PCM.CON ---
<Kevin Dasilva - Last Filed: 10/18/17 18:13> History of Present Illness - History of Present Illness History of Present Illness: Patient is a 67 year old male with a history of HTN, hypercholesterolemia, and atrial fibrillation who presented with dyspnea. Patient is s/p CICI w/ cardioversion. ICU consulted on this patient for A-fib on Amiadarone Drip. Patient has minimal complaints at this time. ROS POSITIVE: throat pain (from intubation), SOB (Improved), Constipation NEGATIVE: Fever, chills, palpitations, chest pain, urinary symptoms. PMHx: HTN, A-fib, Pre-diabetes, HLD, BPH, Psoriasis, CATA PSHx: uteral surgery Allergies: NKDA SocialHx: Denies tobacco, alcohol, and illicit drug use. [employer] . Retired Meds: Reviewed FamHx: Father - Diabetes, Grandmother - Heart Disease. Review of Systems - Review of Systems All systems: reviewed and no additional remarkable complaints except (As per HPI ) Review of Systems: As per HPI Past Patient History - Infectious Disease Hx of Infectious Diseases: None - Past Medical History & Family History Past Medical History?: Yes - Past Social History Smoking Status: Never Smoked - CARDIAC Hx Cardiac Disorders: Yes Hx Cardia Arrhythmia: Yes (ATRIAL FIBRILLATION) Hx Congestive Heart Failure: Yes Hx Hypercholesterolemia: Yes Hx Hypertension: Yes - PULMONARY Hx Respiratory Disorders: Yes Hx Asthma: No Hx Bronchitis: Yes Hx Chronic Obstructive Pulmonary Disease (COPD): No Hx Sleep Apnea: Yes (CPAP EVERY NIGHT) - NEUROLOGICAL Hx Neurological Disorder: No - HEENT Hx HEENT Problems: No - RENAL Hx Chronic Kidney Disease: No - ENDOCRINE/METABOLIC Hx Endocrine Disorders: Yes Hx Diabetes Mellitus Type 2: Yes (PRE DIABETIC) - HEMATOLOGICAL/ONCOLOGICAL Hx Blood Disorders: No - INTEGUMENTARY Hx Dermatological Problems: No - MUSCULOSKELETAL/RHEUMATOLOGICAL Hx Musculoskeletal Disorders: No Hx Falls: No Hx Osteoarthritis: No - GASTROINTESTINAL Hx Gastrointestinal Disorders: No Other/Comment: DENIES POLYPS IN PAST , STATES FAMILY HISTORY POSITIVE - GENITOURINARY/GYNECOLOGICAL Hx Genitourinary Disorders: Yes Other/Comment: LEFT URETER BLOCKAGE YEARS AGO. PSA IS NEGATIVE BUT PHYSICAL EXAM SHOWS ENLARGEMENT - PSYCHIATRIC Hx Substance Use: No - SURGICAL HISTORY Hx Surgeries: Yes Other/Comment: REMOVAL OF BLOCKED LEFT URETER SITE - ANESTHESIA Hx Anesthesia: Yes Hx Anesthesia Reactions: No Hx Malignant Hyperthermia: No Meds Allergies/Adverse Reactions: Allergies Allergy/AdvReac Type Severity Reaction Status Date / Time No Known Allergies Allergy Verified 10/16/17 16:53 - Medications Medications: Current Medications Albuterol/Ipratropium (Duoneb 3 Mg/0.5 Mg (3 Ml) Ud) 3 ml INH RQID [facility] Last Admin: 10/18/17 16:30 Dose: Not Given Diltiazem HCl (Cardizem) 180 mg PO BID [facility] Last Admin: 10/18/17 10:32 Dose: 180 mg Doxycycline Hyclate (Doryx) 100 mg PO Q12H [facility] PRN Reason: Protocol Last Admin: 10/18/17 08:31 Dose: 100 mg Hydrochlorothiazide (Microzide) 12.5 mg PO DAILY [facility] Last Admin: 10/18/17 10:32 Dose: 12.5 mg Amiodarone HCl 900 mg/ (Dextrose) 500 mls @ 33.33 mls/hr IV .Q15H1M ONE; 1 MG/ MIN PRN Reason: Protocol Stop: 10/19/17 05:30 Last Admin: 10/18/17 14:33 Dose: 1 mg/min, 33.33 mls/hr Insulin Aspart (Novolog) 0 unit SC ACHS [facility] PRN Reason: Protocol Last Admin: 10/18/17 11:30 Dose: Not Given Losartan Potassium (Cozaar) 100 mg PO DAILY [facility] Last Admin: 10/18/17 10:31 Dose: 100 mg Montelukast Sodium (Singulair) 10 mg PO HS [facility] Last Admin: 10/17/17 21:27 Dose: 10 mg Pantoprazole Sodium (Protonix Ec Tab) 40 mg PO DAILY [facility] Last Admin: 10/18/17 10:32 Dose: 40 mg Potassium Chloride (K-Dur 20 Meq Er Tab) 40 meq PO BRK ONE Stop: 10/19/17 08:05 Rivaroxaban (Xarelto) 20 mg PO DAILY [facility] Last Admin: 10/18/17 10:38 Dose: 20 mg Rosuvastatin Calcium (Crestor) 10 mg PO HS [facility] Last Admin: 10/17/17 21:27 Dose: 10 mg Physical Exam - Constitutional Appears: Well, Non-toxic - Head Exam Head Exam: ATRAUMATIC, NORMAL INSPECTION, NORMOCEPHALIC - Eye Exam Eye Exam: EOMI - ENT Exam ENT Exam: Mucous Membranes Moist - Respiratory Exam Respiratory Exam: Clear to Auscultation Bilateral. absent: Accessory Muscle Use - Cardiovascular Exam Cardiovascular Exam: RRR, +S1, +S2 - GI/Abdominal Exam GI & Abdominal Exam: Normal Bowel Sounds, Soft. absent: Tenderness - Extremities Exam Extremities exam: Positive for: pedal edema (+1, B/L ). Negative for: tenderness - Psychiatric Exam Psychiatric exam: Normal Affect, Normal Mood - Skin Skin Exam: Dry, Intact, Normal Color, Warm Results - Vital Signs Recent Vital Signs: Last Vital Signs Temp 97.9 F 10/18/17 08:26 Pulse 77 10/18/17 14:33 Resp 22 10/18/17 14:33 BP 97/60 L 10/18/17 14:33 Pulse Ox 100 10/18/17 14:33 - Labs Result Diagrams: 10/16/17 17:03 10/18/17 07:26 Labs: Laboratory Results - last 24 hr 10/17/17 10/17/17 10/18/17 17:46 21:40 06:43 Sodium Potassium Chloride Carbon Dioxide Anion Gap BUN Creatinine Est GFR ( Amer) Est GFR (Non-Af Amer) POC Glucose (mg/dL) 163 H 155 H 127 H Random Glucose Calcium Total Bilirubin AST ALT Alkaline Phosphatase Total Protein Albumin Globulin Albumin/Globulin Ratio 10/18/17 10/18/17 07:26 15:13 Sodium 144 Potassium 3.5 L Chloride 98 Carbon Dioxide 33 H Anion Gap 16 BUN 42 H Creatinine 1.2 Est GFR ( Amer) > 60 Est GFR (Non-Af Amer) > 60 POC Glucose (mg/dL) 126 H Random Glucose 143 H Calcium 9.8 Total Bilirubin 0.9 AST 33 ALT 27 Alkaline Phosphatase 56 Total Protein 7.2 Albumin 3.8 Globulin 3.4 Albumin/Globulin Ratio 1.1 Assessment & Plan - Assessment and Plan (Free Text) Assessment: 67 year old male with a history of HTN, hypercholesterolemia, and atrial fibrillation who presented with dyspnea. Patient is s/p CICI w/ cardioversion. ICU consulted on this patient for A-fib on Amiadarone Drip. Plan: Neuro: GCS: 15 Sedation: None Cardio A: HTN, HLD, A-fib S/P CICI w/ CV. Cont. Amiadarone Drip Continue Cardizem, Losartan, HCTZ Continue Crestor Cont. xarelto Cardiology on Conuslt Pulm A: CATA Continue Singulair, DuoNebs GI Diabetic Consistent Diet Renal A: Hypokalemia Daily Potasium Supplementation Endo Prediabetes Consider ISS Proph Protonix/Xarelto Patient seen and discussed with Attending Kevin Dasilva, PGY-1 <Frankie Kang S - Last Filed: 10/18/17 18:32> Meds - Medications Medications: Current Medications Albuterol/Ipratropium (Duoneb 3 Mg/0.5 Mg (3 Ml) Ud) 3 ml INH RQID [facility] Last Admin: 10/18/17 16:30 Dose: Not Given Diltiazem HCl (Cardizem) 180 mg PO BID [facility] Last Admin: 10/18/17 10:32 Dose: 180 mg Doxycycline Hyclate (Doryx) 100 mg PO Q12H [facility] PRN Reason: Protocol Last Admin: 10/18/17 08:31 Dose: 100 mg Hydrochlorothiazide (Microzide) 12.5 mg PO DAILY [facility] Last Admin: 10/18/17 10:32 Dose: 12.5 mg Amiodarone HCl 900 mg/ (Dextrose) 500 mls @ 33.33 mls/hr IV .Q15H1M ONE; 1 MG/ MIN PRN Reason: Protocol Stop: 10/19/17 05:30 Last Admin: 10/18/17 14:33 Dose: 1 mg/min, 33.33 mls/hr Insulin Aspart (Novolog) 0 unit SC ACHS [facility] PRN Reason: Protocol Last Admin: 10/18/17 11:30 Dose: Not Given Losartan Potassium (Cozaar) 100 mg PO DAILY [facility] Last Admin: 10/18/17 10:31 Dose: 100 mg Montelukast Sodium (Singulair) 10 mg PO HS [facility] Last Admin: 10/17/17 21:27 Dose: 10 mg Pantoprazole Sodium (Protonix Ec Tab) 40 mg PO DAILY [facility] Last Admin: 10/18/17 10:32 Dose: 40 mg Potassium Chloride (K-Dur 20 Meq Er Tab) 40 meq PO BRK ONE Stop: 10/19/17 08:05 Rivaroxaban (Xarelto) 20 mg PO DAILY [facility] Last Admin: 10/18/17 10:38 Dose: 20 mg Rosuvastatin Calcium (Crestor) 10 mg PO HS [facility] Last Admin: 10/17/17 21:27 Dose: 10 mg Results - Vital Signs Recent Vital Signs: Last Vital Signs Temp 97.9 F 10/18/17 08:26 Pulse 77 10/18/17 14:33 Resp 22 10/18/17 14:33 BP 97/60 L 10/18/17 14:33 Pulse Ox 100 10/18/17 14:33 - Labs Result Diagrams: 10/16/17 17:03 10/18/17 07:26 Labs: Laboratory Results - last 24 hr 10/17/17 10/18/17 10/18/17 21:40 06:43 07:26 Sodium 144 Potassium 3.5 L Chloride 98 Carbon Dioxide 33 H Anion Gap 16 BUN 42 H Creatinine 1.2 Est GFR ( Amer) > 60 Est GFR (Non-Af Amer) > 60 POC Glucose (mg/dL) 155 H 127 H Random Glucose 143 H Calcium 9.8 Total Bilirubin 0.9 AST 33 ALT 27 Alkaline Phosphatase 56 Total Protein 7.2 Albumin 3.8 Globulin 3.4 Albumin/Globulin Ratio 1.1 10/18/17 15:13 Sodium Potassium Chloride Carbon Dioxide Anion Gap BUN Creatinine Est GFR ( Amer) Est GFR (Non-Af Amer) POC Glucose (mg/dL) 126 H Random Glucose Calcium Total Bilirubin AST ALT Alkaline Phosphatase Total Protein Albumin Globulin Albumin/Globulin Ratio Attending/Attestation - Attestation I have personally seen and examined this patient.: Yes I have fully participated in the care of the patient.: Yes I have reviewed all pertinent clinical information: Yes Notes (Text): 10/18/17 18:31 patient seen and examined in the intensive care unit. Status post CICI CARDIOVERSION for atrial fibrillation Started on amiodarone drip ICU observation Hemodynamically stable
--- NOTE | 2017-10-18 19:23 | CP.PCM.PN ---
Subjective - Date & Time of Evaluation Date of Evaluation: 10/18/17 Time of Evaluation: 19:20 - Subjective Subjective: PT ALERT, FEELS BETTER., S/P CICI AND CARDIOVERSION TODAY, IN ICU. ROS; OTHERWISE NEG. Objective - Vital Signs/Intake and Output Vital Signs (last 24 hours): Temp Pulse Resp BP Pulse Ox 97.9 F 77 22 97/60 L 100 10/18/17 08:26 10/18/17 14:33 10/18/17 14:33 10/18/17 14:33 10/18/17 14:33 - Medications Medications: Current Medications Albuterol/Ipratropium (Duoneb 3 Mg/0.5 Mg (3 Ml) Ud) 3 ml INH RQID [facility] Last Admin: 10/18/17 16:30 Dose: Not Given Diltiazem HCl (Cardizem) 180 mg PO BID [facility] Last Admin: 10/18/17 10:32 Dose: 180 mg Doxycycline Hyclate (Doryx) 100 mg PO Q12H [facility] PRN Reason: Protocol Last Admin: 10/18/17 08:31 Dose: 100 mg Hydrochlorothiazide (Microzide) 12.5 mg PO DAILY [facility] Last Admin: 10/18/17 10:32 Dose: 12.5 mg Amiodarone HCl 900 mg/ (Dextrose) 500 mls @ 33.33 mls/hr IV .Q15H1M ONE; 1 MG/ MIN PRN Reason: Protocol Stop: 10/19/17 05:30 Last Admin: 10/18/17 14:33 Dose: 1 mg/min, 33.33 mls/hr Insulin Aspart (Novolog) 0 unit SC ACHS [facility] PRN Reason: Protocol Last Admin: 10/18/17 11:30 Dose: Not Given Losartan Potassium (Cozaar) 100 mg PO DAILY [facility] Last Admin: 10/18/17 10:31 Dose: 100 mg Montelukast Sodium (Singulair) 10 mg PO HS [facility] Last Admin: 10/17/17 21:27 Dose: 10 mg Pantoprazole Sodium (Protonix Ec Tab) 40 mg PO DAILY [facility] Last Admin: 10/18/17 10:32 Dose: 40 mg Potassium Chloride (K-Dur 20 Meq Er Tab) 40 meq PO BRK ONE Stop: 10/19/17 08:05 Rivaroxaban (Xarelto) 20 mg PO DAILY [facility] Last Admin: 10/18/17 10:38 Dose: 20 mg Rosuvastatin Calcium (Crestor) 10 mg PO HS [facility] Last Admin: 10/17/17 21:27 Dose: 10 mg - Labs Labs: 10/16/17 17:03 10/18/17 07:26 - Constitutional Appears: No Acute Distress - Head Exam Head Exam: ATRAUMATIC, NORMOCEPHALIC - Eye Exam Eye Exam: EOMI, Normal appearance. absent: Scleral icterus - ENT Exam ENT Exam: Mucous Membranes Moist - Neck Exam Neck Exam: absent: Lymphadenopathy, Tenderness - Respiratory Exam Respiratory Exam: absent: Chest Wall Tenderness, Wheezes Additional comments: DECREASED BS BASES - Cardiovascular Exam Cardiovascular Exam: RRR, +S1, +S2 - GI/Abdominal Exam GI & Abdominal Exam: Soft. absent: Tenderness - Rectal Exam Rectal Exam: Deferred - Extremities Exam Extremities Exam: absent: Calf Tenderness, Pedal Edema - Back Exam Back Exam: absent: CVA tenderness (L), CVA tenderness (R) - Neurological Exam Neurological Exam: Alert, Awake, CN II-XII Intact, Oriented x3 - Psychiatric Exam Psychiatric exam: Normal Mood - Skin Skin Exam: absent: Rash Assessment and Plan (1) Bronchitis Status: Acute (2) Hypertension Status: Acute (3) Obstructive sleep apnea Status: Acute (4) Diabetes Status: Acute (5) Hyperlipidemia Status: Acute (6) Respiratory failure Status: Acute - Assessment and Plan (Free Text) Assessment: RESP STATUS IMPROVED, TOLERATING O2 3L NC., ON IV AMIODARONE DRIP., S/P CICI AND CARDIOVERSION TODAY., NSR NOW, HR CONTROLLED., ON XARELTO. CXR REVIEWED., CONT MONITOR O2 SAT., PULM TOILET., PROG GUARDED., DISCUSSED WITH STAFF AT LENGTH.
[2017-10-19] MEDS ORDERED: guaiFENesin DM 200 mg-20 mg/10 ml UD PO STA (01:38)
[2017-10-19 06:38] LABS: BASO % 0.5 % (0.0-2.0); EOS # 0.4 K/uL (0.0-0.7); EOS % 4.3 % (0.0-4.0); HEMOGLOBIN 14.4 g/dL (12.0-18.0); LYMPH # 1.7 K/uL (1.0-4.3); LYMPH % 20.6 % (20.0-40.0); MEAN CELL VOLUME 87.6 fL (80.0-94.0); MEAN CORPUSCULAR HEMOGLOBIN 30.3 pg (27.0-31.0); MEAN CORPUSCULAR HGB CONC 34.6 g/dL (33.0-37.0); MONO % 12.5 % (0.0-10.0); NEUT # 5.1 K/uL (1.8-7.0); NEUT % 62.1 % (50.0-75.0); NRBC % 0.1 % (0.0-2.0); RBC 4.74 Mil/uL (4.40-5.90); WHITE BLOOD COUNT 8.2 K/uL (4.8-10.8)
[2017-10-19 06:57] LABS: ALB/GLOB RATIO 1.1 (1.0-2.1); ALBUMIN 3.5 g/dL (3.5-5.0); ALT/SGPT 23 U/L (21-72); AST/SGOT 27 U/L (17-59); BLOOD UREA NITROGEN 32 mg/dL (9-20); CALCIUM 9.2 mg/dl (8.6-10.4); GFR AFRICAN-AMERICAN > 60; GFR NON-AFRICAN AMERICAN > 60
[2017-10-19] MEDS: (Novolog) Insulin Aspart, Recombinant 100 u/ml 10 ml vial SC SCH ×4 (07:30→21:16)
[2017-10-19] MEDS: Albuterol-Ipratrop 3 mg / 0.5 (3 ml) UD INH SCH ×4 (07:53→20:28)
[2017-10-19] MEDS ORDERED: Potassium Chloride 20 mEq ER Tab PO ONE (08:04)
[2017-10-19] MEDS: Pantoprazole 40 mg EC Tab PO SCH (09:45)
--- NOTE | 2017-10-19 12:14 | CP.PCM.PN ---
Subjective - Date & Time of Evaluation Date of Evaluation: 10/19/17 Time of Evaluation: 08:35 - Subjective Subjective: Patient feeling well, denies any complaint and wants to go home Objective - Vital Signs/Intake and Output Vital Signs (last 24 hours): Temp Pulse Resp BP Pulse Ox 98.1 F 76 18 127/71 98 10/19/17 08:00 10/19/17 08:00 10/19/17 08:00 10/19/17 09:43 10/19/17 08:00 Intake and Output: 10/19/17 10/19/17 06:59 18:59 Intake Total 325.3 33.4 Output Total 1350 Balance -1024.7 33.4 - Medications Medications: Current Medications Albuterol/Ipratropium (Duoneb 3 Mg/0.5 Mg (3 Ml) Ud) 3 ml INH RQID [facility] Last Admin: 10/19/17 07:53 Dose: 3 ml Diltiazem HCl (Cardizem) 180 mg PO BID [facility] Last Admin: 10/19/17 09:44 Dose: 180 mg Doxycycline Hyclate (Doryx) 100 mg PO Q12H [facility] PRN Reason: Protocol Last Admin: 10/19/17 08:20 Dose: 100 mg Hydrochlorothiazide (Microzide) 12.5 mg PO DAILY [facility] Last Admin: 10/18/17 10:32 Dose: 12.5 mg Insulin Aspart (Novolog) 0 unit SC ACHS [facility] PRN Reason: Protocol Last Admin: 10/19/17 07:30 Dose: Not Given Losartan Potassium (Cozaar) 100 mg PO DAILY [facility] Last Admin: 10/19/17 09:44 Dose: 100 mg Montelukast Sodium (Singulair) [address] [facility] Last Admin: 10/18/17 21:18 Dose: 10 mg Pantoprazole Sodium (Protonix Ec Tab) 40 mg PO DAILY [facility] Last Admin: 10/19/17 09:45 Dose: 40 mg Rivaroxaban (Xarelto) 20 mg PO DAILY [facility] Last Admin: 10/19/17 09:45 Dose: 20 mg Rosuvastatin Calcium (Crestor) 10 mg PO HS [facility] Last Admin: 10/18/17 21:18 Dose: 10 mg - Labs Labs: 10/19/17 06:31 10/19/17 06:31 - Constitutional Appears: Well, Non-toxic - Head Exam Head Exam: ATRAUMATIC, NORMAL INSPECTION, NORMOCEPHALIC - Eye Exam Eye Exam: EOMI - ENT Exam ENT Exam: Mucous Membranes Moist - Respiratory Exam Respiratory Exam: Rales, NORMAL BREATHING PATTERN - Cardiovascular Exam Cardiovascular Exam: REGULAR RHYTHM, +S1, +S2 - GI/Abdominal Exam GI & Abdominal Exam: Normal Bowel Sounds - Extremities Exam Extremities Exam: Normal Inspection, Pedal Edema - Neurological Exam Neurological Exam: Alert, Awake, Oriented x3 Assessment and Plan - Assessment and Plan (Free Text) Assessment: 67 y/o male with pmx of HTN, hypercholesterolemia, and atrial fibrillation who presented to [facility] with dyspnea. Patient underwent cardioversion via CICI. PMHx: HTN, A-fib, Pre-diabetes, HLD, BPH, Psoriasis, CATA PSHx: uteral surgery Allergies: NKDA -Chronic Diastolic heart failure: continue cadizem as per cardiology, cardiology team to specify whether to continue oral amiodarone while on cardizem and length of treatment for AC, restart home medications including lasix and losartan and statin, consider asa -h/o Obesity hypoventilation: continue CPAP at night -incentive spirometry -OOB to chair -avoid duonebs -h/o COPD: (patient refuses history of smoking however, patient's Hb on higher level of normal and CXR c/w hyperinflation) continue DVT/pud ppx Patient will benefit from PT/OT.
--- NOTE | 2017-10-19 13:19 | CP.PCM.PN ---
Subjective - Date & Time of Evaluation Date of Evaluation: 10/19/17 Time of Evaluation: 12:00 - Subjective Subjective: patient is s/p cardiovrsion. feels well. remains in sinus rhythm Objective - Vital Signs/Intake and Output Vital Signs (last 24 hours): Temp Pulse Resp BP Pulse Ox 98.1 F 76 18 127/71 98 10/19/17 08:00 10/19/17 08:00 10/19/17 08:00 10/19/17 09:43 10/19/17 08:00 Intake and Output: 10/19/17 10/19/17 06:59 18:59 Intake Total 325.3 633.4 Output Total 1350 500 Balance -1024.7 133.4 - Medications Medications: Current Medications Albuterol/Ipratropium (Duoneb 3 Mg/0.5 Mg (3 Ml) Ud) 3 ml INH RQID [facility] Last Admin: 10/19/17 07:53 Dose: 3 ml Amiodarone HCl (Cordarone) 200 mg PO DAILY [facility] Diltiazem HCl (Cardizem) 180 mg PO BID [facility] Last Admin: 10/19/17 09:44 Dose: 180 mg Doxycycline Hyclate (Doryx) 100 mg PO Q12H [facility] PRN Reason: Protocol Last Admin: 10/19/17 08:20 Dose: 100 mg Hydrochlorothiazide (Microzide) 12.5 mg PO DAILY [facility] Last Admin: 10/19/17 10:24 Dose: 12.5 mg Insulin Aspart (Novolog) 0 unit SC ACHS [facility] PRN Reason: Protocol Last Admin: 10/19/17 11:30 Dose: Not Given Losartan Potassium (Cozaar) 100 mg PO DAILY [facility] Last Admin: 10/19/17 09:44 Dose: 100 mg Montelukast Sodium (Singulair) 10 mg PO HS [facility] Last Admin: 10/18/17 21:18 Dose: 10 mg Pantoprazole Sodium (Protonix Ec Tab) 40 mg PO DAILY [facility] Last Admin: 10/19/17 09:45 Dose: 40 mg Rivaroxaban (Xarelto) 20 mg PO DAILY [facility] Last Admin: 10/19/17 09:45 Dose: 20 mg Rosuvastatin Calcium (Crestor) 10 mg PO HS [facility] Last Admin: 10/18/17 21:18 Dose: 10 mg - Labs Labs: 10/19/17 06:31 05/17/18 06:31 - Constitutional Appears: Non-toxic - Head Exam Head Exam: NORMAL INSPECTION - Eye Exam Eye Exam: Normal appearance - ENT Exam ENT Exam: Mucous Membranes Moist - Neck Exam Neck Exam: Full ROM - Respiratory Exam Respiratory Exam: NORMAL BREATHING PATTERN - Cardiovascular Exam Cardiovascular Exam: REGULAR RHYTHM - GI/Abdominal Exam GI & Abdominal Exam: Normal Bowel Sounds - Rectal Exam Rectal Exam: Deferred - Extremities Exam Extremities Exam: Pedal Edema - Back Exam Back Exam: NORMAL INSPECTION - Neurological Exam Neurological Exam: Alert - Psychiatric Exam Psychiatric exam: Normal Affect - Skin Skin Exam: Normal Color Assessment and Plan (1) Rapid atrial fibrillation Assessment & Plan: s/p cardioversion. start amipodarone po. can transfer to telemetry. james canas/ sachin in am Status: Acute
--- NOTE | 2017-10-19 16:51 | CP.PCM.PN ---
Subjective - Date & Time of Evaluation Date of Evaluation: 10/19/17 Time of Evaluation: 16:48 - Subjective Subjective: S: Feels better. S/p cadioversion Objective - Vital Signs/Intake and Output Vital Signs (last 24 hours): Temp Pulse Resp BP Pulse Ox 98.1 F 76 18 127/71 98 10/19/17 08:00 10/19/17 08:00 10/19/17 08:00 10/19/17 09:43 10/19/17 08:00 Intake and Output: 10/19/17 10/19/17 06:59 18:59 Intake Total 325.3 973.4 Output Total 1350 1000 Balance -1024.7 -26.6 - Medications Medications: Current Medications Albuterol/Ipratropium (Duoneb 3 Mg/0.5 Mg (3 Ml) Ud) 3 ml INH RQID [facility] Last Admin: 10/19/17 16:47 Dose: 3 ml Amiodarone HCl (Cordarone) 200 mg PO DAILY [facility] Last Admin: 10/19/17 13:40 Dose: 200 mg Diltiazem HCl (Cardizem) 180 mg PO BID [facility] Last Admin: 10/19/17 09:44 Dose: 180 mg Doxycycline Hyclate (Doryx) 100 mg PO Q12H [facility] PRN Reason: Protocol Last Admin: 10/19/17 08:20 Dose: 100 mg Hydrochlorothiazide (Microzide) 12.5 mg PO DAILY [facility] Last Admin: 10/19/17 10:24 Dose: 12.5 mg Insulin Aspart (Novolog) 0 unit SC ACHS [facility] PRN Reason: Protocol Last Admin: 10/19/17 11:30 Dose: Not Given Losartan Potassium (Cozaar) 100 mg PO DAILY [facility] Last Admin: 10/19/17 09:44 Dose: 100 mg Montelukast Sodium (Singulair) 10 mg PO HS [facility] Last Admin: 10/18/17 21:18 Dose: 10 mg Pantoprazole Sodium (Protonix Ec Tab) 40 mg PO DAILY [facility] Last Admin: 10/19/17 09:45 Dose: 40 mg Rivaroxaban (Xarelto) 20 mg PO DAILY [facility] Last Admin: 10/19/17 09:45 Dose: 20 mg Rosuvastatin Calcium (Crestor) 10 mg PO HS [facility] Last Admin: 05/16/18 21:18 Dose: 10 mg - Labs Labs: 10/19/17 06:31 10/19/17 06:31 - Constitutional Appears: No Acute Distress - Head Exam Head Exam: NORMAL INSPECTION - ENT Exam ENT Exam: Normal Exam - Neck Exam Neck Exam: Normal Inspection - Cardiovascular Exam Cardiovascular Exam: REGULAR RHYTHM - GI/Abdominal Exam GI & Abdominal Exam: Soft - Rectal Exam Rectal Exam: Deferred - Extremities Exam Extremities Exam: Normal Inspection Assessment and Plan (1) Atrial fibrillation status post cardioversion Status: Acute (2) Congestive heart failure Status: Acute (3) Hypotension Status: Chronic (4) Diabetes Status: Chronic - Assessment and Plan (Free Text) Assessment: A/p: Continue medications. Appreciate Cardiology notes
--- NOTE | 2017-10-19 18:49 | CP.PCM.PN ---
Subjective - Date & Time of Evaluation Date of Evaluation: 10/19/17 Time of Evaluation: 18:45 - Subjective Subjective: PT ALERT, OOB IN CHAIR,. LESS COUGH., NO SOB AT REST., SLEPT WELL. ROS ; OTHERWISE NEG. Objective - Vital Signs/Intake and Output Vital Signs (last 24 hours): Temp Pulse Resp BP Pulse Ox 98.1 F 76 18 127/71 98 10/19/17 08:00 10/19/17 08:00 10/19/17 08:00 10/19/17 09:43 10/19/17 08:00 Intake and Output: 10/19/17 10/19/17 06:59 18:59 Intake Total 325.3 1373.4 Output Total 1350 1400 Balance -1024.7 -26.6 - Medications Medications: Current Medications Albuterol/Ipratropium (Duoneb 3 Mg/0.5 Mg (3 Ml) Ud) 3 ml INH RQID [facility] Last Admin: 10/19/17 16:47 Dose: 3 ml Amiodarone HCl (Cordarone) 200 mg PO DAILY [facility] Last Admin: 10/19/17 13:40 Dose: 200 mg Diltiazem HCl (Cardizem) 180 mg PO BID [facility] Last Admin: 10/19/17 18:15 Dose: 180 mg Doxycycline Hyclate (Doryx) 100 mg PO Q12H [facility] PRN Reason: Protocol Last Admin: 10/19/17 08:20 Dose: 100 mg Hydrochlorothiazide (Microzide) 12.5 mg PO DAILY [facility] Last Admin: 10/19/17 10:24 Dose: 12.5 mg Insulin Aspart (Novolog) 0 unit SC ACHS [facility] PRN Reason: Protocol Last Admin: 10/19/17 16:30 Dose: Not Given Losartan Potassium (Cozaar) 100 mg PO DAILY [facility] Last Admin: 10/19/17 09:44 Dose: 100 mg Montelukast Sodium (Singulair) 10 mg PO [facility] Last Admin: 10/18/17 21:18 Dose: 10 mg Pantoprazole Sodium (Protonix Ec Tab) 40 mg PO DAILY [facility] Last Admin: 10/19/17 09:45 Dose: 40 mg Rivaroxaban (Xarelto) 20 mg PO DAILY [facility] Last Admin: 10/19/17 09:45 Dose: 20 mg Rosuvastatin Calcium (Crestor) 10 mg PO HS [facility] Last Admin: 10/18/17 21:18 Dose: 10 mg - Labs Labs: 10/19/17 06:31 10/19/17 06:31 - Constitutional Appears: No Acute Distress - Head Exam Head Exam: ATRAUMATIC, NORMOCEPHALIC - Eye Exam Eye Exam: Normal appearance - ENT Exam ENT Exam: Mucous Membranes Moist - Neck Exam Neck Exam: absent: Tenderness - Respiratory Exam Respiratory Exam: Chest Wall Tenderness, Rhonchi - Cardiovascular Exam Cardiovascular Exam: REGULAR RHYTHM, RRR, +S1, +S2 - GI/Abdominal Exam GI & Abdominal Exam: Soft. absent: Tenderness - Rectal Exam Rectal Exam: Deferred - Extremities Exam Extremities Exam: absent: Calf Tenderness, Pedal Edema - Back Exam Back Exam: absent: CVA tenderness (L), CVA tenderness (R) - Neurological Exam Neurological Exam: Alert, Awake, CN II-XII Intact, Oriented x3 - Psychiatric Exam Psychiatric exam: Normal Mood - Skin Skin Exam: absent: Rash Assessment and Plan (1) Bronchitis Status: Acute (2) Hypertension Status: Acute (3) Obstructive sleep apnea Status: Acute (4) Diabetes Status: Chronic (5) Hyperlipidemia Status: Acute (6) Respiratory failure Status: Acute - Assessment and Plan (Free Text) Assessment: RESP STATUS IMPROVING., HR CONTROLLED., S/P CARDIOVERSION YESTERDAY, NOW NSR. ON AMIODARONE PO PER CARDIO. ON XARELTO. MONITOR O2 SAT., CONT PULM TOILET., NEB BD PRN., CPAP QHS., CXR REVIEWED., DISCUSSED WITH STAFF AT LENGTH.
[2017-10-20 01:30] VITALS: RESP 20
[2017-10-20] MEDS: Albuterol-Ipratrop 3 mg / 0.5 (3 ml) UD INH SCH ×2 (07:28→11:01)
[2017-10-20 07:55] LABS: BASO # 0.1 K/uL (0.0-0.2); BASO % 0.6 % (0.0-2.0); EOS # 0.4 K/uL (0.0-0.7); EOS % 3.8 % (0.0-4.0); HEMOGLOBIN 14.6 g/dL (12.0-18.0); LYMPH # 2.3 K/uL (1.0-4.3); LYMPH % 23.4 % (20.0-40.0); MEAN CELL VOLUME 88.6 fL (80.0-94.0); MEAN CORPUSCULAR HEMOGLOBIN 30.3 pg (27.0-31.0); MEAN CORPUSCULAR HGB CONC 34.2 g/dL (33.0-37.0); MEAN PLATELET VOLUME 8.9 fL (7.2-11.7); MONO % 10.4 % (0.0-10.0); NEUT # 6.1 K/uL (1.8-7.0); NEUT % 61.8 % (50.0-75.0); NRBC % 0.1 % (0.0-2.0); RBC 4.82 Mil/uL (4.40-5.90); RED CELL DISTRIBUTION WIDTH 15.2 % (11.5-14.5); WHITE BLOOD COUNT 9.8 K/uL (4.8-10.8)
--- NOTE | 2017-10-20 08:04 | CP.PCM.PN ---
Subjective - Date & Time of Evaluation Date of Evaluation: 10/20/17 Time of Evaluation: 07:40 - Subjective Subjective: Pt feels well but stilll wheezing. No CP, (+) dry cough, no N?V, no diarrhea; (+) post nasal drip Objective - Vital Signs/Intake and Output Vital Signs (last 24 hours): Temp Pulse Resp BP Pulse Ox 97.6 F 66 20 118/78 96 10/19/17 23:15 10/20/17 01:00 10/19/17 23:15 10/19/17 23:15 10/19/17 23:15 - Medications Medications: Current Medications Albuterol/Ipratropium (Duoneb 3 Mg/0.5 Mg (3 Ml) Ud) 3 ml INH RQID [facility] Last Admin: 10/20/17 07:28 Dose: 3 ml Amiodarone HCl (Cordarone) 200 mg PO DAILY [facility] Last Admin: 10/19/17 13:40 Dose: 200 mg Diltiazem HCl (Cardizem) 180 mg PO BID [facility] Last Admin: 10/19/17 18:15 Dose: 180 mg Doxycycline Hyclate (Doryx) 100 mg PO Q12H [facility] PRN Reason: Protocol Last Admin: 10/19/17 21:14 Dose: 100 mg Hydrochlorothiazide (Microzide) 12.5 mg PO DAILY [facility] Last Admin: 10/19/17 10:24 Dose: 12.5 mg Insulin Aspart (Novolog) 0 unit SC ACHS [facility] PRN Reason: Protocol Last Admin: 10/19/17 21:16 Dose: Not Given Losartan Potassium (Cozaar) 100 mg PO DAILY [facility] Last Admin: 10/19/17 09:44 Dose: 100 mg Montelukast Sodium (Singulair) 10 mg PO [facility] Last Admin: 10/19/17 21:14 Dose: 10 mg Pantoprazole Sodium (Protonix Ec Tab) 40 mg PO DAILY [facility] Last Admin: 10/19/17 09:45 Dose: 40 mg Rivaroxaban (Xarelto) 20 mg PO DAILY [facility] Last Admin: 10/19/17 09:45 Dose: 20 mg Rosuvastatin Calcium (Crestor) 10 mg PO [facility] Last Admin: 10/19/17 21:15 Dose: 10 mg - Labs Labs: 10/20/17 07:41 10/19/17 06:31 - Constitutional Appears: No Acute Distress - Eye Exam Eye Exam: Normal appearance - ENT Exam ENT Exam: Mucous Membranes Moist - Neck Exam Neck Exam: Full ROM. absent: Lymphadenopathy, Thyromegaly - Respiratory Exam Respiratory Exam: Decreased Breath Sounds. absent: Rales, Rhonchi, Wheezes - GI/Abdominal Exam GI & Abdominal Exam: Soft. absent: Tenderness, Normal Bowel Sounds - Extremities Exam Extremities Exam: Full ROM. absent: Calf Tenderness, Joint Swelling, Pedal Edema Assessment and Plan - Assessment and Plan (Free Text) Assessment: AC Bronchitis w/ persistent wheeze - improve but not resolve s/p Cardioversion; NIDDM, HTN Will discharge on Doxy/ Symbicort. Amidarone 200 g daily. Cont other meds F/up in clinic x 5 days
[2017-10-20 08:06] LABS: ALB/GLOB RATIO 1.2 (1.0-2.1); ALBUMIN 3.9 g/dL (3.5-5.0); ALT/SGPT 25 U/L (21-72); AST/SGOT 27 U/L (17-59); BLOOD UREA NITROGEN 23 mg/dL (9-20); CALCIUM 9.5 mg/dl (8.6-10.4); GFR AFRICAN-AMERICAN > 60; GFR NON-AFRICAN AMERICAN > 60
[2017-10-20 08:11] VITALS: BP 131/82; PULSE 72; TEMP 98.1; O2SAT 97
--- NOTE | 2017-10-20 08:12 | PCM.HF ---
Heart Failure Core Measure - Heart Failure Ejection Fraction: 40 % or Greater ALAN Inhibitor Prescribed: No Contraindication/Reason for not providing: on arb Beta-Mallory Prescribed: Carvedilol Angiotensin II Receptor Mallory Prescribed: Yes AnticoagulationTherapy for Atrial Fibrillation/Atrialflutter: Yes Aldosterone Antagonist Prescribed: No Contraindication/Reason for not providing: ef >40 Hydralazine Nitrate Prescribed: No Contraindication/Reason for not providing: ef >40 Implantable Cardioverter Defibrillator Therapy: No Contraindication/Reason for not providing: ef >40 Cardiac Resynchronization Therapy Prescribed: No Contraindication/Reason for not providing: ef >40 - Follow up Will be discharged to: Home Follow Up Date (must be within 7 days from discharge): 10/25/17 Follow Up Time: 09:00
[2017-10-20] MEDS: Pantoprazole 40 mg EC Tab PO SCH (10:45)
[2017-10-20] MEDS: (Novolog) Insulin Aspart, Recombinant 100 u/ml 10 ml vial SC SCH (10:46)
--- NOTE | 2017-10-20 12:47 | CARD ---
APPROVED REPORT EKG Measurement Heart [id number] <Conclusion> Sinus rhythm with premature atrial complexes Possible Left atrial enlargement Incomplete right bundle branch block Borderline ECG
--- NOTE | 2017-10-31 08:56 | CP.PCM.DIS ---
Provider - Provider Date of Admission: 10/17/17 10:44 CC: Short of breath 67 y/o male with slep apnea, nIDD< and At Fib. Pateint see in OPD c/o bradycardia and edema. \ Patient given Lasix and dec Coreg w/ his Diltiazem. Patient imprive but later develop cough. Patient has cough, increasing chest congestion with yelowsih mucus. He went to ER and noted to be in CHF/ At fib with RVR - admitted Attending physician: Dominic Ruiz MD Time Spent in preparation of Discharge (in minutes): 15 Hospital Course - Lab Results Lab Results: Micro Results 10/18/17 17:11 Naris MRSA Culture (Admit) - Final MRSA NOT DETECTED Most Recent Lab Values WBC 9.8 K/uL (4.8-10.8) 10/20/17 07:41 RBC 4.82 Mil/uL (4.40-5.90) 10/20/17 07:41 Hgb 14.6 g/dL (12.0-18.0) 10/20/17 07:41 Hct 42.7 % (35.0-51.0) 10/20/17 07:41 MCV 88.6 fL (80.0-94.0) 10/20/17 07:41 MCH 30.3 pg (27.0-31.0) 10/20/17 07:41 MCHC 34.2 g/dL (33.0-37.0) 10/20/17 07:41 RDW 15.2 % (11.5-14.5) H 10/20/17 07:41 Plt Count 205 K/uL (130-400) 10/20/17 07:41 MPV 8.9 fL (7.2-11.7) 10/20/17 07:41 Neut % (Auto) 61.8 % (50.0-75.0) 10/20/17 07:41 Lymph % (Auto) 23.4 % (20.0-40.0) 10/20/17 07:41 Rankin % (Auto) 10.4 % (0.0-10.0) H 10/20/17 07:41 Eos % (Auto) 3.8 % (0.0-4.0) 10/20/17 07:41 Baso % (Auto) 0.6 % (0.0-2.0) 10/20/17 07:41 Neut # (Auto) 6.1 K/uL (1.8-7.0) 10/20/17 07:41 Lymph # (Auto) 2.3 K/uL (1.0-4.3) 10/20/17 07:41 Rankin # (Auto) 1.0 K/uL (0.0-0.8) H 10/20/17 07:41 Eos # (Auto) 0.4 K/uL (0.0-0.7) 10/20/17 07:41 Baso # (Auto) 0.1 K/uL (0.0-0.2) 10/20/17 07:41 Sodium 142 mmol/L (132-148) 10/20/17 07:41 Potassium 3.8 mmol/L (3.6-5.2) 10/20/17 07:41 Chloride 100 mmol/L (98-107) 10/20/17 07:41 Carbon Dioxide 33 mmol/L (22-30) H 10/20/17 07:41 Anion Gap 12 (10-20) 10/20/17 07:41 BUN 23 mg/dL (9-20) H 10/20/17 07:41 Creatinine 0.9 mg/dL (0.8-1.5) 10/20/17 07:41 Est GFR ( Amer) > 60 10/20/17 07:41 Est GFR (Non-Af Amer) > 60 10/20/17 07:41 POC Glucose (mg/dL) 113 mg/dL (65-110) H 10/20/17 06:11 Random Glucose 122 mg/dL (75-110) H 10/20/17 07:41 Calcium 9.5 mg/dl (8.6-10.4) 10/20/17 07:41 Phosphorus 2.8 mg/dL (2.5-4.5) 10/20/17 07:41 Magnesium 2.2 mg/dL (1.6-2.3) 10/20/17 07:41 Total Bilirubin 0.8 mg/dL (0.2-1.3) 10/20/17 07:41 AST 27 U/L (17-59) 10/20/17 07:41 ALT 25 U/L (21-72) 10/20/17 07:41 Alkaline Phosphatase 61 U/L (38-126) 10/20/17 07:41 Troponin I 0.0570 ng/mL (0.00-0.120) 10/16/17 17:03 NT-Pro-B Natriuret Pep 4500 pg/mL (0-900) H 10/16/17 17:03 Total Protein 7.2 g/dL (6.3-8.3) 10/20/17 07:41 Albumin 3.9 g/dL (3.5-5.0) 10/20/17 07:41 Globulin 3.3 gm/dL (2.2-3.9) 10/20/17 07:41 Albumin/Globulin Ratio 1.2 (1.0-2.1) 10/20/17 07:41 TSH 3rd Generation 1.86 mIU/L (0.46-4.68) 10/20/17 07:41 Urine Opiates Screen Negative (NEGATIVE) 10/16/17 17:19 Urine Methadone Screen Negative (NEGATIVE) 10/16/17 17:19 Ur Barbiturates Screen Negative (NEGATIVE) 10/16/17 17:19 Ur Phencyclidine Scrn Negative (NEGATIVE) 10/16/17 17:19 Ur Amphetamines Screen Negative (NEGATIVE) 10/16/17 17:19 U Benzodiazepines Scrn Negative (NEGATIVE) 10/16/17 17:19 U Oth Cocaine Metabols Negative (NEGATIVE) 10/16/17 17:19 U Cannabinoids Screen Negative (NEGATIVE) 10/16/17 17:19 - Hospital Course Hospital Course: Pt admitted for CHF. Patient noted wheezing alot the next day. He was started on DuoNeb and Doxycycline. He was referred to Pulmonary and Cardio. Pateinht was electrically cardioverted and felt much better. Patient discharge on Amiodarone. Discharge Exam - Head Exam Head Exam: ATRAUMATIC, NORMOCEPHALIC - Eye Exam Eye Exam: Normal appearance - ENT Exam ENT Exam: Mucous Membranes Moist - Neck Exam Neck exam: Full Rom - Respiratory Exam Respiratory Exam: Clear to PA & Lateral. absent: Rhonchi, Wheezes, Respiratory Distress - Cardiovascular Exam Cardiovascular Exam: REGULAR RHYTHM, +S1, +S2. absent: Gallop, JVD, Systolic Murmur - GI/Abdominal Exam GI & Abdominal Exam: Soft. absent: Rebound, Tenderness - Extremities Exam Extremities exam: full ROM, normal capillary refill, pedal edema, pedal pulses present Discharge Plan - Follow Up Plan Condition: GOOD Disposition: HOME/ ROUTINE Instructions: Heart Failure, Adult, Heart Healthy Diet, Atrial Fibrillation (DC ), Heart Failure, Adult (DC), Amiodarone, Budesonide and Formoterol, Doxycycline Additional Instructions: Will e RX Doxy, Symbicort and Amiodarone Cont all other OPD meds F/up 5 days All medications called into your Pharmacy. Referrals: Dominic Ruiz MD [Staff Provider] -
== END 2017-10-20 11:10 | disposition home or self-care (01) | DRG 291 ==
LOC: C.ER 16:37 → C.9E 17:20 → C.6T 18:11 → OBSVTOIN 10-17 10:44 → C.9I 10-18 16:39 → C.6T 10-19 21:35
PROVIDERS: ADMIT Internal Medicine; ATTEND Internal Medicine
PROC: 5A09457 Assistance with Respiratory Ventilation, 24-96 Consecutive Hours, Continuous Positive Airway Pressure (ICD-10-PCS; principal; 2017-10-17)
PROC: B24BZZ4 Ultrasonography of Heart with Aorta, Transesophageal (ICD-10-PCS; 2017-10-18)
DX: I11.0 Hypertensive heart disease with heart failure (principal); J96.01 Acute respiratory failure with hypoxia; J44.0 Chronic obstructive pulmonary disease with (acute) lower respiratory infection; I50.33 Acute on chronic diastolic (congestive) heart failure; E11.9 Type 2 diabetes mellitus without complications; E78.00 Pure hypercholesterolemia, unspecified; E87.6 Hypokalemia; G47.33 Obstructive sleep apnea (adult) (pediatric); I48.2 Chronic atrial fibrillation; I95.81 Postprocedural hypotension; J20.9 Acute bronchitis, unspecified; N40.0 Benign prostatic hyperplasia without lower urinary tract symptoms